=== PATIENT | male | born 1975 | race Caucasian/White ===

== ENCOUNTER 2017-03-13 15:37 | Emergency (ER) | payer BC ==
[2017-03-13 15:49] VITALS: BP 133/78
--- NOTE | 2017-03-13 15:49 | UC ---
Lower Extremity/Ankle HPI - HPI Summary HPI Summary: Left dorsal forefoot pain and redness x2days. Denies specific injury. 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 Has not tried anything OTC for relief. Does not burn or itch - History of Current Complaint Chief Complaint: UCLowerExtremity Stated Complaint: FOOT PAIN Time Seen by Provider: 03/13/17 15:42 Hx Obtained From: Patient Onset/Duration: Sudden Onset Severity Initially: Mild Severity Currently: Mild Pain Intensity: 4 Pain Scale Used: 0-10 Numeric Aggravating Factor(s): Standing, Ambulation Alleviating Factor(s): Rest Able to Bear Weight: Yes - Allergies/Home Medications Allergies/Adverse Reactions: Allergies Allergy/AdvReac Type Severity Reaction Status Date / Time Sulfa Antibiotics Allergy Severe Hives/ Verified 03/13/17 15:49 ANAPHYLAXIS PMH/Surg Hx/FS Hx/Imm Hx Previously Healthy: Yes - Surgical History Surgical History: Yes Surgery Procedure, Year, and Place: TUBES IN EARS. 05/20/13 RIGHT CTR, [facility]. 1994 RIGHT KNEE SURGERY, [facility]. 06/2013 LEFT CARPAL TUNNEL RELEASE, [facility]. Torn Bicep repair - Social History Occupation: Employed Full-time Lives: With Family Alcohol Use: Occasionally Substance Use Type: None Smoking Status (MU): Never Smoked Tobacco Have You Smoked in the Last Year: No Review of Systems Constitutional: Negative Skin: Bruising - Left forefoot Respiratory: Negative Cardiovascular: Negative Neurovascular: Negative Musculoskeletal: Decreased ROM - Left foot plantar flexion Neurological: Negative Psychological: Negative Is Patient Immunocompromised?: No All Other Systems Reviewed And Are Negative: Yes Physical Exam Triage Information Reviewed: Yes Appearance: Well-Appearing, Well-Nourished Vital Signs Reviewed: Yes Respiratory: Positive: Chest non-tender, Lungs clear, Normal breath sounds Cardiovascular: Positive: RRR, No Murmur, Pulses Normal Musculoskeletal: Positive: No Edema, Strength Limited @ - Left foot. 4/5, ROM Limited @ - Left foot. Limited plantar flexion due to pain Neurological: Positive: Muscle Tone Normal Psychological Exam: Normal Psychological: Positive: Age Appropriate Behavior Skin: Positive: rashes - Mild erythema and irritation in the web space of 2nd and 3rd, 3rd and 4th toes, Other - Erythema and mild ecchymosis at the base of 3rd and 4th toe. Diagnostics - Laboratory Diagnostic Studies Completed/Ordered: Foot XR today - negative Lower Extremity Course/Dx - Course Course Of Treatment: Pt is active on his feet. Has not tried any OTC methods for relief. XR today is negative. Pt was offered an ANNIKA wrap or light duty at work, but declined. Will contiue to monitor his symptoms, check his work boots for any deformity on the inside, and RTC or go to ED if symptoms change. - Differential Dx/Diagnosis Differential Diagnosis/HQI/PQRI: Arthritis, Contusion, Gout, Strain Provider Diagnoses: 1) Left foot contusion. 2) Tinea pedis left Discharge - Discharge Plan Condition: Stable Disposition: HOME Patient Education Materials: Foot Contusion (ED) Referrals: Faraz Cardoza MD [Primary Care Provider] - Additional Instructions: 1) Ibuprofen OTC as needed for pain. 2) Keep an eye out for any increased pain, redness, or swelling - if so, seek medical attention. 3) Check the inside of your work boots to ensure there was no puncture. 4) OTC Lotrimin to 2nd, 3rd, and 4th web spaces for mild athlete's foot. If you develop a fever, chills, new or worsening symptoms - please call our office or go to ED
--- NOTE | 2017-03-13 16:22 | RAD ---
INDICATION: Right foot injury COMPARISON: None TECHNIQUE: AP, lateral, and oblique views were obtained. FINDINGS: The bony structures, joint spaces, and soft tissues are normal for age. IMPRESSION: NEGATIVE EXAMINATION.
== END 2017-03-13 16:30 | disposition home or self-care (01) ==
LOC: UCEAST 15:37
DX: S90.32XA Contusion of left foot, initial encounter (principal); X58.XXXA Exposure to other specified factors, initial encounter; Y93.9 Activity, unspecified; Y92.9 Unspecified place or not applicable; B35.3 Tinea pedis; Z88.2 Allergy status to sulfonamides
CPT/HCPCS: 99211; G0463

== ENCOUNTER 2019-01-14 05:41 | Emergency (ER) | payer BC ==
[2019-01-14] MEDS ORDERED: NS 0.9% 1000 ML** 1,000 ML IV.FLUID IV ONE (06:07)
[2019-01-14 07:00] LABS: Urine Appearance Cloudy; Urine Bacteria Absent (Absent); Urine Bilirubin Negative (Negative); Urine Blood Negative (Negative); Urine Color Amber; Urine Glucose Negative (Negative); Urine Ketones Negative (Negative); Urine Nitrite Negative (Negative); Urine Protein 2+(100 mg/dL) (Negative); Urine Red Blood Cell Absent (Absent); Urine Specific Gravity 1.023 (1.010-1.030); Urine Urobilinogen Positive (Negative); Urine White Blood Cell Trace(0-5/hpf) (Absent)
[2019-01-14 07:03] LABS: Hematocrit 43 % (42-52); Hemoglobin 15.2 g/dL (14.0-18.0); Mean Corpuscular HGB Conc 35 g/dL (31-36); Mean Corpuscular Hemoglobin 31 pg (27-31); Mean Corpuscular Volume 88 fL (80-94); Mean Platelet Volume 8.3 fL (7.4-10.4); Red Blood Count 4.87 10^6 /uL (4.18-5.48); Red Cell Distribution Width 14 % (10-15); White Blood Count 3.1 10^3/uL (3.5-10.8)
[2019-01-14 07:04] LABS: Activated Partial Thrombo Time 33.8 seconds (26.0-38.0); INR 1.3 (0.82-1.09)
[2019-01-14 07:18] LABS: Albumin 3.6 g/dL (3.2-5.2); Albumin/Globulin Ratio 1.4 (1-3); BUN/Creatinine Ratio 15.2 (8-20); C Reactive Protein 114.91 mg/L (<8.01); Calcium 8.1 mg/dL (8.6-10.3); EGFR African American 85.8 (>60); EGFR Non-African American 70.9 (>60); Globulin 2.5 g/dL (2-4); Total Bilirubin 1.9 mg/dL (0.2-1.0); Total Protein 6.1 g/dL (6.4-8.9)
[2019-01-14] MEDS ORDERED: Acetaminophen TAB* 325 MG PO ONE (07:33)
[2019-01-14 07:36] LABS: ABS Eosinophils 0.1 10^3/ul (0-0.6); ABS Lymphocytes 1.1 10^3/ul (1.0-4.8); ABS Monocytes 0.4 10^3/ul (0-0.8); ABS Neutrophils 1.5 10^3/ul (1.5-7.7); Eosinophil % 2.4 %; Lymphocyte % 34.4 %; Nucleated Red Blood Cells % 0.3
[2019-01-14 07:59] LABS: Hematocrit 40 % (42-52); Hemoglobin 13.8 g/dL (14.0-18.0); Mean Corpuscular HGB Conc 35 g/dL (31-36); Mean Corpuscular Hemoglobin 31 pg (27-31); Mean Corpuscular Volume 89 fL (80-94); Red Blood Count 4.51 10^6 /uL (4.18-5.48); Red Cell Distribution Width 13 % (10-15); White Blood Count 3.3 10^3/uL (3.5-10.8)
[2019-01-14 08:51] LABS: ABS Eosinophils 0.1 10^3/ul (0-0.6); ABS Lymphocytes 1.3 10^3/ul (1.0-4.8); ABS Monocytes 0.5 10^3/ul (0-0.8); ABS Neutrophils 1.5 10^3/ul (1.5-7.7); Eosinophil % 1.7 %; Mean Platelet Volume 8.7 fL (7.4-10.4); Nucleated Red Blood Cells % 0.1; Platelet Count 78 10^3/uL (150-450)
[2019-01-14] MEDS ORDERED: DOXYcycline IV* 100 MG in NS 0.9% 250 ML* 250 ML IVPB ONE (09:11)
[2019-01-14 09:32] LABS: Erythrocyte Sed Rate 7 mm/Hr (0-14)
[2019-01-14] MEDS ORDERED: Cyclobenzaprine TAB* 10 MG PO ONE (11:37)
[2019-01-14 12:01] LABS: RBC Parasite Smear No Parasites Seen (No Parasite)
--- NOTE | 2019-01-14 12:18 | ED ---
HPI Febrile Illness - HPI Summary HPI Summary: This patient is a 43-year-old male who up until 3 days ago was in his usual state of health now presenting to the ED with fever, sweats, chills, malaise, right-sided neck pain and generalized weakness 3 days. He was seen at urgent care 2 days ago, states labs were drawn and he was treated for dehydration with a liter of fluids. Over the past 2 days, he continues to feel unwell, and states now has developed R sided neck pain (did not have this previously 2 days ago.) Denies neck stiffness or photophobia. Pain is located to the R side of the neck with no pain to the cervical spine. He denies any known tick bites or rashes, however has been outside more frequently. He works for the [employer] for the [employer]. He has been denying cough or congestion. Continues to endorse CHRISTIE x 4 days which improves somewhat with Tylenol. Takes no medications. Denies any recent illness, injuries. Denies health problems. He does not endorse CP, however has mild SOB with exertion. Fever highest 2 days ago at 103.1 at . Lyme test was performed at and was negative. He was able to f/u with his PCP yesterday who suggested US spleen and liver d/t thrombocytopenia. - History of Current Complaint Chief Complaint: EDGeneral Time Seen by Provider: 01/14/19 05:52 Hx Obtained From: Patient Onset/Duration: Started Days Ago Timing: Constant Initial Severity: Severe Current Severity: Severe Pain Intensity: 10 Pain Scale Used: 0-10 Numeric Aggravating Factors: Nothing Alleviating Factors: Nothing Associated Signs and Symptoms: Arthralgia - right sided neck pain - Risk Factors Pseudomonas Risk Factors: Negative Serious Bacterial Infection Risk Factors: Negative - Allergy/Home Medications Allergies/Adverse Reactions: Allergies Allergy/AdvReac Type Severity Reaction Status Date / Time Sulfa (Sulfonamide Allergy Severe Anaphylatic Verified 01/12/19 16:18 Antibiotics) Shock PMH/Surg Hx/FS Hx/Imm Hx Previously Healthy: Yes Endocrine/Hematology History: Denies: Hx Diabetes Cardiovascular History: Denies: Hx Hypertension, Hx Pacemaker/ICD Respiratory History: Denies: Hx Asthma, Other Respiratory Problems/Disorders GI History: Denies: Other GI Disorders History: Denies: Hx Renal Disease Musculoskeletal History: Reports: Other Musculoskeletal History - RUPTURED TENDON BICEPS LONG HEAD LEFT ELBOW, PRESENTLY Denies: Hx Rheumatoid Arthritis, Hx Osteoporosis Sensory History: Denies: Hx Contacts or Glasses, Hx Hearing Aid Opthamlomology History: Denies: Hx Contacts or Glasses Psychiatric History: Denies: Hx Panic Disorder - Surgical History Surgery Procedure, Year, and Place: TUBES IN EARS. 05/20/13 RIGHT CTR, [facility] , Lt CARPAL TUNNEL. 1994 RIGHT KNEE SURGERY, [facility] [place]. 06/2013 LEFT CARPAL TUNNEL RELEASE, [facility]. LT Torn Bicep repair Hx Anesthesia Reactions: No - Immunization History Hx Pertussis Vaccination: No Immunizations Up to Date: Yes Infectious Disease History: No Infectious Disease History: Denies: Hx Clostridium Difficile, Hx Hepatitis, Hx Human Immunodeficiency Virus (HIV), Hx of Known/Suspected MRSA, Hx Shingles, Hx Tuberculosis, Hx Known/ Suspected VRE, Hx Known/Suspected VRSA, History Other Infectious Disease, Traveled Outside the [place] in Last 30 Days - Family History Known Family History: Positive: Non-Contributory - Social History Occupation: Employed Full-time Lives: With Family Alcohol Use: Occasionally Hx Substance Use: No Substance Use Type: Reports: None Hx Tobacco Use: No Smoking Status (MU): Never Smoked Tobacco Have You Smoked in the Last Year: No Review of Systems Positive: Fever, Chills, Fatigue, Skin Diaphoresis Negative: Sore Throat Negative: Palpitations, Chest Pain Negative: Shortness Of Breath, Cough Genitourinary: Negative Positive: no symptoms reported, see HPI Positive: Arthralgia - right sided neck pain and diffuse joint tendenress - mild Positive: Other - no rashes/tick bites Negative: Headache, Weakness, Paresthesia, Numbness, Syncope, Slurred Speech All Other Systems Reviewed And Are Negative: Yes Physical Exam Triage Information Reviewed: Yes Vital Signs On Initial Exam: Initial Vitals Temp Pulse Resp BP Pulse Ox 97.5 F 79 20 123/88 98 01/14/19 05:43 01/14/19 05:43 01/14/19 05:43 01/14/19 05:43 01/14/19 05:43 Vital Signs Reviewed: Yes Appearance: Positive: No Pain Distress Skin: Positive: Diaphoretic Head/Face: Positive: Normal Head/Face Inspection Eyes: Positive: EOMI, LES, Conjunctiva Clear Neck: Positive: Supple, Nontender, No Lymphadenopathy, Enlarged Nodes @ - no evidence of enlarged nodes Respiratory/Lung Sounds: Positive: Clear to Auscultation, Breath Sounds Present Cardiovascular: Positive: RRR, Pulses are Symmetrical in both Upper and Lower Extremities. Negative: Leg Edema Left, Leg Edema Right Musculoskeletal: Positive: Normal, Strength/ROM Intact Neurological: Positive: Alert, Oriented to Person Place, Time, Speech Normal Psychiatric: Positive: Affect/Mood Appropriate AVPU Assessment: Alert Diagnostics - Vital Signs Vital Signs Temp Pulse Resp BP Pulse Ox 01/14/19 11:01 75 97 01/14/19 11:00 77 132/96 98 01/14/19 10:01 71 98 01/14/19 10:00 74 135/89 99 01/14/19 09:02 70 98 01/14/19 09:00 69 136/85 99 01/14/19 08:00 72 118/82 98 01/14/19 07:42 75 98 01/14/19 05:43 97.5 F 79 20 123/88 98 - Laboratory Lab Results: Lab Results 01/14/19 01/14/19 01/14/19 Range/Units 06:15 06:47 06:47 WBC 3.1 L (3.5-10.8) 10^3/uL RBC 4.87 (4.18-5.48) 10^6 /uL Hgb 15.2 (14.0-18.0) g/dL Hct 43 (42-52) % MCV 88 (80-94) fL MCH 31 (27-31) pg MCHC 35 (31-36) g/dL RDW 14 (10-15) % Plt Count (150-450) 10^3/uL MPV 8.3 (7.4-10.4) fL Neut % (Auto) 50.1 % Lymph % (Auto) 34.4 % Winkler % (Auto) 12.5 % Eos % (Auto) 2.4 % Baso % (Auto) 0.6 % Absolute Neuts (auto) 1.5 (1.5-7.7) 10^3/ul Absolute Lymphs (auto) 1.1 (1.0-4.8) 10^3/ul Absolute Monos (auto) 0.4 (0-0.8) 10^3/ul Absolute Eos (auto) 0.1 (0-0.6) 10^3/ul Absolute Basos (auto) 0.0 (0-0.2) 10^3/ul Absolute Nucleated RBC 0.0 10^3/ul Immature Gran % 23.0 H (0-9) % Neutrophils % 32.0 % Band Neutrophils % 22.0 H (0-8) % Lymphocytes % 20.0 % Reactive Lymphs % 11.0 H (0-6) % Monocytes % 9.0 % Eosinophils % 5.0 % Basophils % 0.0 % Myelocytes % 1.0 (0-1) % Nucleated RBC % 0.3 Normal RBC Morphology Normal (Normal) Smear Path Review ESR 7 (0-14) mm/Hr Hem Pathologist Commnt Pending INR (Anticoag Therapy) 1.30 H (0.82-1.09) APTT 33.8 (26.0-38.0) seconds Sodium (135-145) mmol/L Potassium (3.5-5.0) mmol/L Chloride (101-111) mmol/L Carbon Dioxide (22-32) mmol/L Anion Gap (2-11) mmol/L BUN (6-24) mg/dL Creatinine (0.67-1.17) mg/dL Est GFR ( Amer) (>60) Est GFR (Non-Af Amer) (>60) BUN/Creatinine Ratio (8-20) Glucose (70-100) mg/dL Lactic Acid (0.5-2.0) mmol/L Calcium (8.6-10.3) mg/dL Total Bilirubin (0.2-1.0) mg/dL AST (13-39) U/L ALT (7-52) U/L Alkaline Phosphatase (34-104) U/L Lactate Dehydrogenase (140-271) U/L Troponin I (<0.04) ng/mL C-Reactive Protein (<8.01) mg/L Total Protein (6.4-8.9) g/dL Albumin (3.2-5.2) g/dL Globulin (2-4) g/dL Albumin/Globulin Ratio (1-3) Urine Color Angie Urine Appearance Cloudy Urine pH 7.0 (5-9) Ur Specific Addison 1.023 (1.010-1.030) Urine Protein 2+(100 mg/dl) A (Negative) Urine Ketones Negative (Negative) Urine Blood Negative (Negative) Urine Nitrate Negative (Negative) Urine Bilirubin Negative (Negative) Urine Urobilinogen Positive A (Negative) Ur Leukocyte Esterase Negative (Negative) Urine WBC (Auto) Trace(0-5/hpf) (Absent) Urine RBC (Auto) Absent (Absent) Urine Bacteria Absent (Absent) Urine Glucose Negative (Negative) Monoscreen Negative (Negative) Blood Parasite Screen (No Parasite) 01/14/19 01/14/19 01/14/19 Range/Units 06:47 06:47 07:45 WBC 3.3 L (3.5-10.8) 10^3/uL RBC 4.51 (4.18-5.48) 10^6 /uL Hgb 13.8 L (14.0-18.0) g/dL Hct 40 L (42-52) % MCV 89 (80-94) fL MCH 31 (27-31) pg MCHC 35 (31-36) g/dL RDW 13 (10-15) % Plt Count 78 L (150-450) 10^3/uL MPV 8.7 (7.4-10.4) fL Neut % (Auto) 44.8 % Lymph % (Auto) 39.0 % Winkler % (Auto) 14.2 % Eos % (Auto) 1.7 % Baso % (Auto) 0.3 % Absolute Neuts (auto) 1.5 (1.5-7.7) 10^3/ul Absolute Lymphs (auto) 1.3 (1.0-4.8) 10^3/ul Absolute Monos (auto) 0.5 (0-0.8) 10^3/ul Absolute Eos (auto) 0.1 (0-0.6) 10^3/ul Absolute Basos (auto) 0.0 (0-0.2) 10^3/ul Absolute Nucleated RBC 0.0 10^3/ul Immature Gran % 14.0 H (0-9) % Neutrophils % 34.0 % Band Neutrophils % 14.0 H (0-8) % Lymphocytes % 32.0 % Reactive Lymphs % 12.0 H (0-6) % Monocytes % 6.0 % Eosinophils % 2.0 % Basophils % % Myelocytes % (0-1) % Nucleated RBC % 0.1 Normal RBC Morphology Normal (Normal) Smear Path Review Pending ESR (0-14) mm/Hr Hem Pathologist Commnt Pending INR (Anticoag Therapy) (0.82-1.09) APTT (26.0-38.0) seconds Sodium 137 (135-145) mmol/L Potassium 4.0 (3.5-5.0) mmol/L Chloride 106 (101-111) mmol/L Carbon Dioxide 27 (22-32) mmol/L Anion Gap 4 (2-11) mmol/L BUN 17 (6-24) mg/dL Creatinine 1.12 (0.67-1.17) mg/dL Est GFR ( Amer) 85.8 (>60) Est GFR (Non-Af Amer) 70.9 (>60) BUN/Creatinine Ratio 15.2 (8-20) Glucose 106 H (70-100) mg/dL Lactic Acid 0.8 (0.5-2.0) mmol/L Calcium 8.1 L (8.6-10.3) mg/dL Total Bilirubin 1.90 H (0.2-1.0) mg/dL AST 131 H (13-39) U/L ALT 175 H (7-52) U/L Alkaline Phosphatase 155 H (34-104) U/L Lactate Dehydrogenase 440 H (140-271) U/L Troponin I 0.00 (<0.04) ng/mL C-Reactive Protein 114.91 H (<8.01) mg/L Total Protein 6.1 L (6.4-8.9) g/dL Albumin 3.6 (3.2-5.2) g/dL Globulin 2.5 (2-4) g/dL Albumin/Globulin Ratio 1.4 (1-3) Urine Color Urine Appearance Urine pH (5-9) Ur Specific Addison (1.010-1.030) Urine Protein (Negative) Urine Ketones (Negative) Urine Blood (Negative) Urine Nitrate (Negative) Urine Bilirubin (Negative) Urine Urobilinogen (Negative) Ur Leukocyte Esterase (Negative) Urine WBC (Auto) (Absent) Urine RBC (Auto) (Absent) Urine Bacteria (Absent) Urine Glucose (Negative) Monoscreen Cancelled (Negative) Blood Parasite Screen No parasites seen (No Parasite) Result Diagrams: 01/14/19 07:45 01/14/19 06:47 Lab Statement: Any lab studies that have been ordered have been reviewed, and results considered in the medical decision making process. Course/Dx - Course Course Of Treatment: Patient appears diaphoretic on arrival. Alert and oriented. Somewhat pale and fatigued. at bedside. Lungs cta, rrr, no abdominal tenderness throughout. Right-sided neck pain, not worse with palpation. Patient is able to rotate about the neck as well as flex and extend without discomfort. No cervical lymphadenopathy. Abdomen soft and nontender, no evidence of splenomegaly or hepatomegaly. Denies any urinary symptoms. Denies any back pain, negative for CVA tenderness. No weakness noted bilaterally to the upper and lower extremities. No rashes or petechia noted throughout. Kernigs and Brudzinski negative. VS stable: Temperature 97.5, pulse 79, respirations 20, 98% on room air and 123/88. PCP is Dr. Cardoza. Labs obtained and are remarkable for leukocytosis, thrombocytopenia and elevated transaminases. Monospot obtained and is negative. EBV send out. Platelets Wbc 3.1 , CRP 115, INR slightly elevated at 1.30. ESR 7. Elevated LFTS, with thrombocytopenia at 78. Lactate dehydrogenase 440. EGK normal sinus rhythm with a rate of 77. Chest xray negative for acute processes. Brain CT obtained d/t 4 days continuing CHRISTIE which also showed not acute intracranial abnormalities. This appears to me to be a bebesiosis or anaplasmosis. A tick born panel was sent. Called Dr. Coles who agrees to see patient in the ED. Recommends doxy, atovaquone, and azithromycin to cover until tick born panel returns. He will f/u with Dr. Coles next week. He is given flexeril in the ED for neck pain and heating pads. Encouraged flexeril, Tylenol and ibuprofen for discomfort. - Febrile Illness Differential Diagnoses: Fever of Unknown Origin, Samson Spotted Fever, Toxic Shock Syndrome, Other: - Babesiosis, anaplasmosis, other febrile illness, thrombocytopenia - Diagnoses Provider Diagnoses: Tick borne fever - Provider Notifications Discussed Care Of Patient With: Shalom Coles MD Instructed by Provider To: MD Will See In ED Discharge ED - Sign-Out/Discharge Documenting (check all that apply): Patient Departure Patient Received Moderate/Deep Sedation with Procedure: No - Discharge Plan Condition: Stable Disposition: HOME Prescriptions: Atovaquone* [Mepron*] 750 mg PO BID #70 ml Azithromycin 500 mg PO DAILY #7 tablet Cyclobenzaprine TAB* [Flexeril TAB*] 10 mg PO BID PRN #10 tab PRN Reason: Spasms DOXYcycline CAP(*) [DOXYcycline 100MG CAP(*)] 100 mg PO BID #28 cap Forms: *Work Release Referrals: Osbaldo GUERRIER,Shalom Castle [Medical Doctor] - 2 Days Faraz Cardoza MD [Primary Care Provider] - 2 Days Additional Instructions: Please follow up with Dr. Coles next week As discussed, it appears you may have anaplamosis vs. bebesiosis You are on 3 antibiotics at this time You will see Dr. Coles next week for any need of medication changes Flexeril as needed for neck pain/stiffness Moist heat to the area Tylenol 650mg and ibuprofen 600mg three times daily each for any neck discomfort - Billing Disposition and Condition Condition: STABLE Disposition: Home
[2019-01-14 12:21] VITALS: BP 126/85
--- NOTE | 2019-01-14 13:34 | CONS ---
CONSULTATION REPORT: DATE OF CONSULT: 01/14/19 REQUESTING PROVIDER: SHAGUFTA Cabrera CONSULTING SERVICE: Infectious Disease. REASON FOR CONSULT: Fever, thrombocytopenia. IMPRESSION: A few days of fever, headache, myalgia without meningeal signs on exam. Blood work shows pancytopenia. White count 3.3, hemoglobin 13, platelets 78. ALT is 175, bilirubin is 1.9. I think given his outdoor exposure in this time of year in this area, tick-borne infection is high on the differential diagnosis. Possibilities include anaplasma causing everything, but the anemia, babesiosis which does cause a hemolytic anemia, less likely Lyme. Bacterial infection or complications of bacteremia is a possibility, but I think less likely. He does not have other focal signs or symptoms. RECOMMENDATIONS: He has had the tick PCR sent that will take a few days to come back. We will start him on doxycycline 100 mg by mouth twice a day for 10 days and we will add azithromycin and atovaquone to cover babesiosis. I will add a malaria smear, which sometimes will show organisms within the red cells and the result will be returned before the PCR results. He will follow up with me next week and understands to come back to the hospital if he cannot keep down the medications and cannot stay hydrated. HISTORY OF PRESENT ILLNESS: This is a 43-year-old man with significant outdoor exposure over the last few weeks, who has had about a week of fever, malaise, anorexia, diffuse myalgia without upper respiratory symptoms. In fact, he has no abdominal pain either, no right upper quadrant pain. No diarrhea or vomiting. No dysuria. No cough. He had been seen in urgent care earlier in the week and found to have mild thrombocytopenia. He is followed by Dr. Cardoza , who recommended to come back into the ER with his worsening symptoms, which included fever and some worsening headache. He had a CT of the brain here, which was unremarkable. He had a CBC that showed a white count of 3.3, platelets 78,000, hemoglobin 13 after hydration, down from 15. ALT 175, bilirubin 1.9. LDH 440. CRP 114. Urinalysis shows protein and urobilinogen. He has not noticed tick bites, but does spend a lot of time outdoors in the [place] this time of the year. Has had no travel, no sick contacts. PAST MEDICAL HISTORY: None. ALLERGIES: SULFA. MEDICATIONS: In the ER: 1. He has had a dose of IV doxycycline. 2. He has had Tylenol. 3. Normal saline. SOCIAL HISTORY: He works for the [employer]. Lives in [place] with his and children and outdoor pets. FAMILY HISTORY: No recurrent infections. REVIEW OF SYSTEMS: All negative except as noted above to a 12-point review. PHYSICAL EXAM: Vital Signs: Temperature 36.5, heart rate 70, respiratory rate 20, blood pressure 136/85, oxygen saturation 98% on room air. In general, he is awake, not in distress. Neurologic: He is oriented x3. Follows all commands. Moves all his extremities. HEENT: There is no conjunctival hemorrhage. Oropharynx without lesions. Neck is supple without mass. Lymph Nodes: There is no cervical, supraclavicular, inguinal, axillary or epitrochlear lymphadenopathy. Heart is regular rate and rhythm without murmurs , rubs, or gallops. Lungs are clear to auscultation bilaterally. Abdomen: Soft, nontender, nondistended. There are bowel sounds present. There is no right upper quadrant tenderness to palpation. Skin: There is no rash or splinter hemorrhage. Musculoskeletal: There is no spine tenderness to palpation or joint synovitis. LABORATORY DATA: Monospot was negative. Urinalysis shows protein, no white cells. Creatinine 1.1, sodium 137, potassium 4.0. Please see impression and recommendations outlined above, which I discussed with SHAGUFTA Cabrera and Dr. Cardoza. Thanks for asking me to see Mr. Higginbotham in consultation. [id number]/[facility] #: [id number] [facility]
[2019-01-15 16:11] LABS: EBV Capsid Ag IgG Ab Positive (Negative); EBV Capsid Ag IgM Ab Negative (Negative); Epstein-Barr Nuclear Antigen Positive (Negative)
[2019-01-18 13:07] LABS: Anaplasma phagocytophilum Negative (Negative); B. miyamotoi PCR, B Negative (Negative); Babesia divergens/MO-1 Negative (Negative); Babesia ducani Negative (Negative); Ehrlichia chaffeensis Negative (Negative); Ehrlichia ewingii/canis Negative (Negative); Ehrlichia muris eauclairensis Negative (Negative)
== END 2019-01-14 12:20 | disposition home or self-care (01) ==
LOC: ED 05:41
DX: A93.8 Other specified arthropod-borne viral fevers (principal); Z88.2 Allergy status to sulfonamides; Z79.899 Other long term (current) drug therapy
CPT/HCPCS: 36415; 70450; 71046; 80053; 81003; 81015; 83605; 83615; 84484; 85025; 85060; 85610; 85652; 85730; 86140; 86308; 86664; 86665; 87015; 87040; 87086; 87207; 87798; 93005; 96361; 96365; 96366; 99283; A9270-GY

== ENCOUNTER 2019-06-06 11:55 | Emergency (ER) | payer BC ==
[2019-06-06 12:47] VITALS: BP 101/66
--- NOTE | 2019-06-06 13:14 | UC ---
FLU HPI - HPI Summary HPI Summary: 44 yo male presents with flu like symptoms. He tells me that yesterday he developed feeling feverish, fatigue, body aches, sore throat, and lower back discomfort. He took tylenol and ibuprofen and felt better. He is eating and drinking well. Denies specific sick contacts. Denies cough, rash, SOB, chest pain, abdominal pain, n/v/d, dysuria. - History of Current Complaint Chief Complaint: UCGeneralIllness Stated Complaint: FLU SYMPTOMS Time Seen by Provider: 06/06/19 13:13 Hx Obtained From: Patient Onset/Duration: Sudden Onset Severity Currently: Mild Severity Initially: Mild Pain Intensity: 3 Pain Scale Used: 0-10 Numeric - Allergy/Home Medications Allergies/Adverse Reactions: Allergies Allergy/AdvReac Type Severity Reaction Status Date / Time Sulfa (Sulfonamide Allergy Severe Anaphylatic Verified 06/07/19 08:11 Antibiotics) Shock PMH/Surg Hx/FS Hx/Imm Hx - Additional Past Medical History Additional PMH: None - Surgical History Surgical History: Yes Surgery Procedure, Year, and Place: TUBES IN EARS. 05/20/13 RIGHT CTR, [facility] , Lt CARPAL TUNNEL. 1994 RIGHT KNEE SURGERY, [facility]. 06/2013 LEFT CARPAL TUNNEL RELEASE, [facility] [place]. LT Torn Bicep repair - Family History Known Family History: Positive: Non-Contributory - Social History Occupation: Employed Full-time Lives: With Family Alcohol Use: Occasionally Substance Use Type: None Smoking Status (MU): Never Smoked Tobacco Have You Smoked in the Last Year: No Review of Systems All Other Systems Reviewed And Are Negative: No Constitutional: Positive: Fever, Fatigue, Other - Body aches Skin: Positive: Negative Eyes: Positive: Negative ENT: Positive: Sore Throat Respiratory: Positive: Negative Cardiovascular: Positive: Negative Gastrointestinal: Positive: Negative Neurological: Positive: Negative Psychological: Positive: Negative Physical Exam - Summary Physical Exam Summary: GENERAL: NAD. WDWN. No pain distress. SKIN: No rashes, sores, lesions, or open wounds. HEENT: Head: AT/NC Eyes: EOM intact. Conjunctiva clear without inflammation or discharge. Ears: Hearing grossly normal. TMs intact, no bulging, erythema, or edema. Nose: Nasal mucosa pink and moist. NTTP maxillary and frontal sinus. Throat: Posterior oropharynx without exudates, erythema, or tonsillar enlargement. Uvula midline. NECK: Supple. Mildly ttp tonsillar LAD. CHEST: CTAB. No r/r/w. No accessory muscle use. Breathing comfortably and in no distress. CV: RRR. Pulses intact. Cap refill <2seconds NEURO: Alert. PSYCH: Age appropriate behavior. Triage Information Reviewed: Yes Vital Signs: Initial Vital Signs Temp 99.6 F 06/06/19 12:43 Pulse 98 06/06/19 12:43 Resp 18 06/06/19 12:43 BP 101/66 06/06/19 12:43 Pulse Ox 97 06/06/19 12:43 Laboratory Tests 06/06/19 06/06/19 06/06/19 13:12 13:36 14:00 POC Urine Color Dark yellow POC Urine Clarity Clear POC Urine pH 6.0 POC Ur Specif [place] 1.020 POC Urine Protein 1+ A POC Ur Glucose (UA) Negative POC Urine Ketones Negative POC Urine Blood Trace-intact POC Urine Nitrite Negative POC Urine Bilirubin Negative POC Urine Urobilinogen 0.2 POC U Leukocyte Esteras Negative Influenza A (Rapid) Negative Influenza B (Rapid) Negative Group A Strep Rapid Negative Vital Signs Reviewed: Yes Flu Course/Dx - Course Course Of Treatment: POC strep and flu negative. UA negative for infection. Suspect viral illness. Advised to rest and drink plenty of fluids. May continue tylenol/ibuprofen for symptoms. Recheck if symptoms do not improve - Differential Dx/Diagnosis Provider Diagnosis: Viral syndrome Discharge ED - Sign-Out/Discharge Documenting (check all that apply): Patient Departure All imaging exams completed and their final reports reviewed: No Studies - Discharge Plan Condition: Stable Disposition: HOME Patient Education Materials: Viral Syndrome (ED) Referrals: Faraz Cardoza MD [Primary Care Provider] - Additional Instructions: Your flu, strep, and urine tests were negative for infection today. Your symptoms are likely from a viral infection. Viral infections do not respond to antibiotics and are limited to the treatment of symptoms. Viral infections typically run their course in 7-10 days. Drink plenty of fluids, especially if you are running any fever. Use salt water gargles several times a day. Take over the counter acetaminophen (Tylenol) or ibuprofen (Advil, Motrin) according to directions as needed for pain or fever. You may also use Chloraseptic spray or Cepacol lonzenges according to directions which contain a numbing medication and can provide some temporary relief from a sore throat. Return here or follow up with your primary care provider in 7 days if symptoms persist. - Billing Disposition and Condition Condition: STABLE Disposition: Home - Attestation Statements Provider Attestation: I was available for consult. This patient was seen by the [facility]. The patient was not presented to, seen by, or examined by me. -Kareem
[2019-06-06 13:24] LABS: Influenza A Molecular NEGATIVE (Negative); Influenza B Molecular NEGATIVE (Negative)
== END 2019-06-06 14:10 | disposition home or self-care (01) ==
LOC: UCEAST 11:55
DX: B34.9 Viral infection, unspecified (principal); R53.83 Other fatigue; M79.10 Myalgia, unspecified site; J02.9 Acute pharyngitis, unspecified; M54.5 Low back pain; Z88.2 Allergy status to sulfonamides
CPT/HCPCS: 81003; 87651; 99211; G0463

== ENCOUNTER 2019-06-07 08:05 | Emergency (ER) | payer BC ==
[2019-06-07] MEDS ORDERED: Acetaminophen TAB* 325 MG PO ONE (09:54)
[2019-06-07 10:15] VITALS: BP 114/75
--- NOTE | 2019-06-07 14:00 | ED ---
Influenza-Like Illness - HPI Summary HPI Summary: Patient is a 44 female who presents emergency department for worsening productive cough, fever, body aches 3 days. [facility] and [facility] negative flu [facility]ab. Patient concerned today because he coughed up blood-tinged mucus. No past medical history. Does not smoke. No associated symptoms of vomiting and abdominal pain, diarrhea. Symptoms are mild in severity. No current modifying factors. - History of Current Complaint Chief Complaint: EDGeneral Time Seen by Provider: 06/07/19 08:25 Hx Obtained From: Patient - Allergy/Home Medications Allergies/Adverse Reactions: Allergies Allergy/AdvReac Type Severity Reaction Status Date / Time Sulfa (Sulfonamide Allergy Severe Anaphylatic Verified 06/07/19 08:11 Antibiotics) Shock PMH/Surg Hx/FS Hx/Imm Hx Previously Healthy: Yes Endocrine/Hematology History: Denies: Hx Diabetes Cardiovascular History: Denies: Hx Hypertension, Hx Pacemaker/ICD Respiratory History: Denies: Hx Asthma, Other Respiratory Problems/Disorders GI History: Denies: Other GI Disorders History: Denies: Hx Renal Disease Musculoskeletal History: Reports: Other Musculoskeletal History - RUPTURED TENDON BICEPS LONG HEAD LEFT ELBOW, PRESENTLY Denies: Hx Rheumatoid Arthritis, Hx Osteoporosis Sensory History: Denies: Hx Contacts or Glasses, Hx Hearing Aid Opthamlomology History: Denies: Hx Contacts or Glasses Psychiatric History: Denies: Hx Panic Disorder - Surgical History Surgery Procedure, Year, and Place: TUBES IN EARS. 05/20/13 RIGHT CTR, [facility] , Lt CARPAL TUNNEL. 1994 RIGHT KNEE SURGERY, [facility]. 06/2013 LEFT CARPAL TUNNEL RELEASE, [facility]. LT Torn Bicep repair Hx Anesthesia Reactions: No Infectious Disease History: No Infectious Disease History: Denies: Hx Clostridium Difficile, Hx Hepatitis, Hx Human Immunodeficiency Virus (HIV), Hx of Known/Suspected MRSA, Hx Shingles, Hx Tuberculosis, Hx Known/ Suspected VRE, Hx Known/Suspected VRSA, History Other Infectious Disease, Traveled Outside the [place] in Last 30 Days - Family History Known Family History: Positive: Non-Contributory - Social History Occupation: Employed Full-time Lives: With Family Alcohol Use: Occasionally Hx Substance Use: No Substance Use Type: Reports: None Hx Tobacco Use: No Smoking Status (MU): Never Smoked Tobacco Have You Smoked in the Last Year: No Review of Systems Positive: Fever, Chills Eyes: Negative Positive: Sore Throat, Nasal Discharge Cardiovascular: Negative Positive: Shortness Of Breath, Cough Gastrointestinal: Negative Negative: Abdominal Pain, Vomiting, Diarrhea Positive: Myalgia Skin: Negative Negative: Rash Neurological: Negative All Other Systems Reviewed And Are Negative: Yes Physical Exam Triage Information Reviewed: Yes Vital Signs On Initial Exam: Initial Vitals Temp Pulse Resp BP Pulse Ox 100.3 F 106 16 131/70 98 06/07/19 08:08 06/07/19 08:08 06/07/19 08:08 06/07/19 08:08 06/07/19 08:08 Vital Signs Reviewed: Yes Appearance: Positive: Well-Appearing - Pt. lying in bed in NAD. Skin: Positive: Warm, Dry Head/Face: Positive: Normal Head/Face Inspection Eyes: Positive: Normal, EOMI, LES, Conjunctiva Clear ENT: Positive: Pharynx normal, TMs normal. Negative: Tonsillar swelling, Tonsillar exudate Neck: Positive: Supple, Nontender. Negative: Nuchal Rigidity Respiratory/Lung Sounds: Positive: Other - Mildly deminished breath sounds through out. Cardiovascular: Positive: Normal, RRR Neurological: Positive: Normal, CN Intact II-III Psychiatric: Positive: Affect/Mood Appropriate Procedures - Sedation Patient Received Moderate/Deep Sedation with Procedure: No Diagnostics - Vital Signs Vital Signs Temp Pulse Resp BP Pulse Ox 06/07/19 10:14 99.9 F 102 20 114/75 97 06/07/19 08:08 100.3 F 106 16 131/70 98 - Laboratory Lab Statement: Any lab studies that have been ordered have been reviewed, and results considered in the medical decision making process. Flu Symptom Course/Dx - Course Course Of Treatment: Pt. with productive cough. Nontoxic appearing. O2 saturation 98% on RA. Mildly tachy and low grade fever. CXR shows RLL infiltrate per radiology. WIll tx with azithromycin and ventolin. Pt to f.u with pcp in 2-3 days for recheck. Tylenol or motrin for fever and pain as directed. Increase fluids and rest. Will return to er if sxs change or worsen. Pt. understands and agrees with plan. - Diagnoses Differential Diagnosis/HQI/PQRI: Positive: Influenza, Pneumonia, Upper Respiratory Infection Provider Diagnoses: Pneumonia Discharge ED - Sign-Out/Discharge Documenting (check all that apply): Patient Departure - Discharge Plan Condition: Good Disposition: HOME Prescriptions: Albuterol HFA INHALER* [Ventolin HFA Inhaler*] 2 puff INH Q6H PRN #1 mdi PRN Reason: Shortness Of Breath Azithromycin TAB* [Zithromax TAB (Z-DOLLY) 250 mg #6 tabs] 2 tab PO .TODAY, THEN 1 DAILY #1 dolly Patient Education Materials: Bacterial Pneumonia (ED) Forms: *Work Release Referrals: Faraz Cardoza MD [Primary Care Provider] - Additional Instructions: Follow up with your PCP in 2-3 days for recheck Increase fluids and rest Tylenol or Motrin for pain and fever as directed Take antibiotic as directed Return to ER if symptoms change or worsen - Billing Disposition and Condition Condition: GOOD Disposition: Home - Attestation Statements Provider Attestation: I was available for consultation for this patient. I did not evaluate the patient or participate in any medical decision making or disposition decisions unless I am specifically named in the chart as having consulted on the patient. If I have consulted on the patient, please see my own ED note on the patient encounter. Bart Vazquez MD
== END 2019-06-07 10:15 | disposition home or self-care (01) ==
LOC: ED 08:05
DX: J18.9 Pneumonia, unspecified organism (principal); J02.9 Acute pharyngitis, unspecified
CPT/HCPCS: 71046; 99281; A9270-GY